=== PATIENT | male | born 2000 | race African-American/Black ===

== ENCOUNTER 2022-02-03 10:41 | Emergency (ER) | payer OTHER ==
[~2022-02-03] VITALS: Wt 108.9 kg
[2022-02-03] MEDS ORDERED: POLYTRIM 1000010 M1 OPH (12:00)
== END 2022-02-03 12:22 | disposition home or self-care (01) ==
LOC: ED 10:41
DX: H57.89 Other specified disorders of eye and adnexa (principal)